=== PATIENT | female | born 1970 | race Caucasian/White ===

== ENCOUNTER 2017-11-24 12:53 | Emergency (ER) | payer MEDICARE, MEDICAID ==
[2017-11-24 13:42] LABS: ABS Basophils 0.1 10^3/ul (0-0.2); ABS Eosinophils 0.2 10^3/ul (0-0.6); ABS Lymphocytes 4.9 10^3/ul (1.0-4.8); ABS Monocytes 0.8 10^3/ul (0-0.8); ABS Neutrophils 5.6 10^3/ul (1.5-7.7); ABS Nucleated RBC 0 10^3/ul; Eosinophil % 1.7 % (0-6); Hematocrit 40 % (35-47); Hemoglobin 13.4 g/dl (12.0-16.0); Lymphocyte % 42.2 % (25-47); Mean Corpuscular HGB Conc 34 g/dl (31-36); Mean Corpuscular Hemoglobin 30 pg (27-31); Mean Corpuscular Volume 89 fL (80-97); Mean Platelet Volume 8 um3 (7.4-10.4); Nucleated Red Blood Cells % 0.1; Platelet Count 292 10^3/ul (150-450); Red Cell Distribution Width 13 % (10.5-15); White Blood Count 11.6 10^3/ul (3.5-10.8)
[2017-11-24 13:48] LABS: INR 0.98 (0.77-1.02)
[2017-11-24 13:58] LABS: EGFR Non-African American 122.6 (>60)
--- NOTE | 2017-11-24 15:30 | RAD ---
Indication: Left lower quadrant pain. CT of the abdomen and pelvis was performed without oral or IV contrast administration. Coronal and sagittal reconstructed images were obtained. Lung bases demonstrate no pleural fluid, nodules or masses. Heart is of normal size without pericardial effusion. Liver is normal in size. No focal lesions or intrahepatic ductal dilatation is noted. The gallbladder demonstrates no calcified gallstones. No pericholecystic fluid or wall thickening is identified. The common duct is not dilated. The spleen is normal in size. Pancreas demonstrates no mass or pancreatic ductal dilatation. No adrenal lesions are noted. The kidneys demonstrates no hydronephrosis. No retroperitoneal lymphadenopathy is noted. Aorta and inferior vena cava are unremarkable. CT of the pelvis demonstrates no retroperitoneal or pelvic lymphadenopathy. There is infiltration of fat in the anterior mesenteric border of the descending colon just above the junction between the descending colon and sigmoid colon. No fluid is noted. No wall thickening is noted. This is consistent with epiploic appendagitis. No free fluid is identified. The urinary bladder and ovaries are unremarkable. Dilated loops of bowel are noted. The appendix is visualized and is unremarkable. No hernias are noted. The bony structures including the lumbar spine are unremarkable. IMPRESSION: There is some infiltration of fat on the antimesenteric border of the descending colon without evidence of diverticula or focal wall thickening. Findings are consistent with epiploic appendagitis.
[2017-11-24 16:43] VITALS: BP 133/84
--- NOTE | 2017-11-25 10:31 | ED ---
Maricarmen Christianson Thomas, scribed for Manoj Joyce MD on 11/24/17 at 1358 . Abdominal Pain/Female - HPI Summary HPI Summary: The patient is a 47 year old female complaining of LLQ pain that began three days ago. The pain is rated 5/10. The pain is aggravated by palpation and movement. The patient has chronic constipation. The patient has been taking her stool softeners, and she digitally removed some stool two days ago. She denies nausea. She has a history of IBS. She is on morphine. - History of Current Complaint Chief Complaint: EDAbdPain Stated Complaint: POSSIBLE HERNIA Time Seen by Provider: 11/24/17 13:52 Hx Obtained From: Patient Onset/Duration: Lasting Days - 3, Still Present Severity Currently: Moderate Pain Intensity: 5 Pain Scale Used: 0-10 Numeric Location: Discrete At: LLQ Alleviating Factor(s): Nothing Associated Signs and Symptoms: Positive: Constipation. 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 abdominoplasty 1999, plantar fasciotomy 2003,left knee arthroscopy 2008, right frontal crani 2005 for meningioma, right frontal cranial resection 2006, oopherectomy 2011 Infectious Disease History: No Infectious Disease History: Denies: Traveled Outside the [place] in Last 30 Days - Family History Known Family History: Positive: Unknown - Patient was adopted - Social History Alcohol Use: Occasionally Hx Substance Use: No Substance Use Type: Reports: None Hx Tobacco Use: Yes Smoking Status (MU): Current Every Day Smoker Type: Cigarettes Amount Used/How Often: 15 cigarettes/day Length of Time of Smoking/Using Tobacco: had quit for 8 years and restarted again 1.5 yrs ago Have You Smoked in the Last Year: Yes Review of Systems Negative: Fever Positive: Abdominal Pain - LLQ, Other - Constipation. Negative: Nausea All Other Systems Reviewed And Are Negative: Yes Physical Exam - Summary Physical Exam Summary: Appearance: The patient is well-nourished in no acute distress and in no acute pain. Skin: The skin is warm and dry and skin color reflects adequate perfusion. HEENT: The head is normocephalic and atraumatic. The pupils are equal and reactive. The conjunctivae are clear and without drainage. Nares are patent and without drainage. Mouth reveals moist mucous membranes and the throat is without erythema and exudate. The external ears are intact. The ear canals are patent and without drainage. The tympanic membranes are intact. Neck: the neck is supple with full range of motion and non-tender. There are no carotid bruits. There is no neck vein distension. Respiratory: Chest is non-tender. Lungs are clear to auscultation and breath sounds are symmetrical and equal. Cardiovascular: Heart is regular rate and rhythm. There is no murmur or rub auscultated.~There is no peripheral edema and pulses are symmetrical and equal. Abdomen: The abdomen is soft. There is mild LLQ tenderness. There are normal bowel sounds heard in all four quadrants and there is no organomegaly palpated. Musculoskeletal: There is no back tenderness noted. Extremities are non-tender with full range of motion. There is good capillary refill. There is no peripheral edema or calf tenderness elicited. Neurological: Patient is alert and oriented to person, place and time. The patient has symmetrical motor strength in all four extremities. Cranial nerves are grossly intact. Deep tendon reflexes are symmetrical and equal in all four extremities. Psychiatric: The patient has an appropriate affect and does not exhibit any anxiety or depression. Triage Information Reviewed: Yes Vital Signs On Initial Exam: Initial Vitals Temp Pulse Resp BP Pulse Ox 97.4 F 86 14 143/84 98 11/24/17 12:55 11/24/17 12:55 11/24/17 12:55 11/24/17 12:55 11/24/17 12:55 Vital Signs Reviewed: Yes Diagnostics - Vital Signs Vital Signs Temp Pulse Resp BP Pulse Ox 11/24/17 12:55 97.4 F 86 14 143/84 98 - Laboratory Lab Results: Lab Results 11/24/17 11/24/17 11/24/17 Range/Units 13:00 13:00 13:00 WBC 11.6 H (3.5-10.8) 10^3/ul RBC 4.50 (4.0-5.4) 10^6/ul Hgb 13.4 (12.0-16.0) g/dl Hct 40 (35-47) % MCV 89 (80-97) fL MCH 30 (27-31) pg MCHC 34 (31-36) g/dl RDW 13 (10.5-15) % Plt Count 292 (150-450) 10^3/ul MPV 8 (7.4-10.4) um3 Neut % (Auto) 48.1 (38-83) % Lymph % (Auto) 42.2 (25-47) % [place] % (Auto) 7.0 (0-7) % Eos % (Auto) 1.7 (0-6) % Baso % (Auto) 1.0 (0-2) % Absolute Neuts (auto) 5.6 (1.5-7.7) 10^3/ul Absolute Lymphs (auto) 4.9 H (1.0-4.8) 10^3/ul Absolute Monos (auto) 0.8 (0-0.8) 10^3/ul Absolute Eos (auto) 0.2 (0-0.6) 10^3/ul Absolute Basos (auto) 0.1 (0-0.2) 10^3/ul Absolute Nucleated RBC 0 10^3/ul Nucleated RBC % 0.1 INR (Anticoag Therapy) 0.98 (0.77-1.02) Lactic Acid 1.1 (0.5-2.0) mmol/L Result Diagrams: 11/24/17 13:00 11/24/17 13:00 Lab Statement: Any lab studies that have been ordered have been reviewed, and results considered in the medical decision making process. - CT CT Abd/Pel CT Interpretation: Positive (See Comments) - There is some infiltration of fat on the antimesenteric border of the descending colon without evidence of diverticula or focal wall thickening. Findings are consistent with epiploic appendagitis. Dr. Joyce has reviewed this report. CT Interpretation Completed By: Radiologist Abdominal Pain Fem Course/Dx - Course Course Of Treatment: Ms. Sanchez presented with a concern that she is constipated as she has LLQ pain that is exacerbatied by straining at stools for the last couple of days. She was tender in the LLQ and CT showed that she has epiploic apendagitis. She will be treated symptomatically. - Diagnoses Provider Diagnoses: Epiploic appendagitis Discharge - Discharge Plan Condition: Stable Disposition: HOME Patient Education Materials: Abdominal Pain (ED) Referrals: Rodolfo Foote MD [Primary Care Provider] - 3 Days Additional Instructions: Follow up with your primary care physician in three days. Return to the emergency department for any new or worsening symptoms. The documentation as recorded by the Maricarmen arcos Thomas accurately reflects the service I personally performed and the decisions made by , Manoj Joyce MD.
== END 2017-11-24 16:41 | disposition home or self-care (01) ==
LOC: ED 12:53
DX: K63.89 Other specified diseases of intestine (principal); F17.210 Nicotine dependence, cigarettes, uncomplicated; Z88.0 Allergy status to penicillin
CPT/HCPCS: 36415; 74176; 80053; 82150; 82550; 83605; 83690; 83735; 84484; 84702; 85025; 85610; 86140; 99282

== ENCOUNTER 2018-02-24 14:14 | Emergency (ER) | payer MEDICARE, MEDICAID ==
--- NOTE | 2018-02-24 16:08 | ED ---
Skin Complaint - HPI Summary HPI Summary: Complains of redness, swelling, pain to left lower abdomen 4 days. Denies purulent drainage. History of abscess same site. Denies fever, N/V. Medical history is DM, RA, HDL, hypothyroid. - History of Current Complaint Chief Complaint: EDRashSkinAbscess Time Seen by Provider: 02/24/18 15:25 Stated Complaint: ABSCESS Hx Obtained From: Patient Pain Intensity: 9 - Additional Pertinent History Primary Care Physician: [facility] - Allergy/Home Medications Allergies/Adverse Reactions: Allergies Allergy/AdvReac Type Severity Reaction Status Date / Time Penicillins Allergy Hives Verified 02/24/18 14:24 PMH/Surg Hx/FS Hx/Imm Hx Endocrine/Hematology History: Reports: Hx Diabetes - on metformin, Hx Thyroid Disease - hypothryoid Cardiovascular History: Reports: Hx Hypercholesterolemia, Hx Hypertension Respiratory History: Reports: Hx Sleep Apnea GI History: Reports: Hx Gastroesophageal Reflux Disease Musculoskeletal History: Reports: Hx Arthritis - rheumatoid arthritis dx in 2006 , Hx Fibromyalgia Sensory History: Reports: 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 abdominoplasty 1999, plantar fasciotomy 2003,left knee arthroscopy 2008, right frontal crani 2005 for meningioma, right frontal cranial resection 2006, oopherectomy 2011 Infectious Disease History: No Infectious Disease History: Denies: Traveled Outside the [place] in Last 30 Days - Family History Known Family History: Positive: Unknown - Patient was adopted - Social History Alcohol Use: None Hx Substance Use: No Substance Use Type: Reports: Prescribed Substance Use Comment - Amount & Last Used: embeda and opana Hx Tobacco Use: Yes Smoking Status (MU): Current Every Day Smoker Type: Cigarettes Amount Used/How Often: 15 cigarettes/day Length of Time of Smoking/Using Tobacco: had quit for 8 years and restarted again 1.5 yrs ago Have You Smoked in the Last Year: Yes Review of Systems Constitutional: Negative Eyes: Negative ENT: Negative Cardiovascular: Negative Respiratory: Negative Gastrointestinal: Negative Genitourinary: Negative Musculoskeletal: Negative Positive: Other Neurological: Negative Psychological: Normal All Other Systems Reviewed And Are Negative: Yes Physical Exam - Summary Physical Exam Summary: 4 cm x 3 cm abscess left lower abdomen. No evidence of purulent drainage. Mildly fluctuant. Positive erythema, swelling and warmth. Triage Information Reviewed: Yes Vital Signs On Initial Exam: Initial Vitals Temp Pulse Resp BP Pulse Ox 97.6 F 84 14 151/101 98 02/24/18 14:25 02/24/18 14:25 02/24/18 14:25 02/24/18 14:25 02/24/18 14:25 Vital Signs Reviewed: Yes Appearance: Positive: Well-Appearing Skin: Positive: Warm Head/Face: Positive: Normal Head/Face Inspection Eyes: Positive: Normal Neck: Positive: Supple Respiratory/Lung Sounds: Positive: Clear to Auscultation Cardiovascular: Positive: Normal Abdomen Description: Positive: Nontender Musculoskeletal: Positive: Normal Neurological: Positive: Normal Psychiatric: Positive: Normal AVPU Assessment: Alert - Olivier Coma Scale Best Eye Response: 4 - Spontaneous Best Motor Response: 6 - Obeys Commands Best Verbal Response: 5 - Oriented Coma Scale Total: 15 Diagnostics - Vital Signs Vital Signs Temp Pulse Resp BP Pulse Ox 02/24/18 14:25 97.6 F 84 14 151/101 98 - Laboratory Lab Statement: Any lab studies that have been ordered have been reviewed, and results considered in the medical decision making process. Course/Dx - Course Course Of Treatment: Complains of abscess to left lower abdomen 4 days. Denies purulent drainage. History of abscess in same spot before that self resolved. Med history includes DM. I&D, Rx for Bactrim. Follow-up with primary care - Differential Diagnoses - Skin Complaint Differential Diagnoses: Abscess - Diagnoses Provider Diagnoses: Abscess Discharge - Sign-Out/Discharge Documenting (check all that apply): Discharge/Admit/Transfer - Discharge Plan Condition: Stable Disposition: HOME Prescriptions: Sulfamethox/Trimethoprim DS* [Bactrim DS 800/160 TAB*] 1 tab PO BID 10 Days #20 tab Patient Education Materials: Abscess (ED), Abscess Follow-up (ED) Referrals: Rodolfo Foote MD [Primary Care Provider] - Additional Instructions: Use compresses and warm shower water to help drain. Continue to press on abscess to help drain. Take antibiotics as directed. Return to the ED for any new or worsening symptoms - Billing Disposition and Condition Condition: STABLE Disposition: HOME
[2018-02-24] MEDS ORDERED: Sulfamethox/Trimethoprim DS 800/160* TAB PO ONE (16:10)
[2018-02-24 17:01] VITALS: BP 154/104
--- NOTE | 2018-02-28 06:37 | PN ---
Progress Note - Progress Note Date of Service: 03/27/18 Note: Pt. was seen in ED 02/24/18 and had abdominal abscess I and D. She was placed on Bactrim. Wound culture today is growing staph. lugdenensis which is susceptible to bactrim. No change in treatment needed at this time.
--- NOTE | 2018-03-01 07:00 | ED ---
Progress - Progress Note Progress Note: Patient's wound result reveals Staphylococcus Lugdenensis. She was started on Bactrim and organism does not appear to be sensitive to this antibiotic. She is however sensitive to both clindamycin and doxycycline. Left message to call and Will mail letter. tom Tao, heriberto. Course/Dx - Course Course Of Treatment: Complains of abscess to left lower abdomen 4 days. Denies purulent drainage. History of abscess in same spot before that self resolved. Med history includes DM. I&D, Rx for Bactrim. Follow-up with primary care - Diagnoses Provider Diagnoses: Abscess Discharge - Sign-Out/Discharge Documenting (check all that apply): Post-Discharge Follow Up - Discharge Plan Condition: Stable Disposition: HOME Prescriptions: Sulfamethox/Trimethoprim DS* [Bactrim DS 800/160 TAB*] 1 tab PO BID 10 Days #20 tab Patient Education Materials: Abscess (ED), Abscess Follow-up (ED) Referrals: Rodolfo Foote MD [Primary Care Provider] - Additional Instructions: Use compresses and warm shower water to help drain. Continue to press on abscess to help drain. Take antibiotics as directed. Return to the ED for any new or worsening symptoms - Billing Disposition and Condition Condition: STABLE Disposition: HOME
== END 2018-02-24 16:55 | disposition home or self-care (01) ==
LOC: ED 14:14
DX: L02.211 Cutaneous abscess of abdominal wall (principal); B95.7 Other staphylococcus as the cause of diseases classified elsewhere; E11.9 Type 2 diabetes mellitus without complications; F17.210 Nicotine dependence, cigarettes, uncomplicated; Z79.84 Long term (current) use of oral hypoglycemic drugs; Z88.0 Allergy status to penicillin
CPT/HCPCS: 10060; 87070; 87077; 87186; 87205; 87640; 87641; 99282; A9270-GY

== ENCOUNTER → 2019-02-03 10:14 | Emergency (ER) | payer MEDICARE, MEDICAID ==
[~2019-02-03 10:14] MED LIST: Iodixanol* (CONTRAST) 320 MG/ML 100 ML SDV IV ONE; Morphine 4 MG/ML VIAL (1 ml) 4 MG/ML VIAL IV ONE; NS 0.9% 1000 ML** 1,000 ML IV ONE; Ondansetron INJ* 2 MG/ML VIAL IV ONE
--- NOTE | 2019-02-03 12:13 | ED ---
Abdominal Pain/Female - HPI Summary HPI Summary: Pt. is a 49 y.o female who presents to the ER for nausea and vomiting x 3 days. Associated sxs of epigastric pain. Pt. denies fever, chills, CP, SOB, diarrhea, urinary sxs. Pt. notes she has been very tired and slept almost 24 hours yesterday. notes she had a low grade fever around 100.3F yesterday. Past medical hx of RA, HDL, DM, depression, fibromyalgia, hypothyroidism. Pt. follows with the pain clinic and is on chronic narcotics. Sxs are moderate in severity. No current modifying factors. - History of Current Complaint Chief Complaint: EDNauseaVomitDiarrh Stated Complaint: THROWING UP PER PT Time Seen by Provider: 02/03/19 11:59 Hx Obtained From: Patient Pain Intensity: 10 Allergies/Adverse Reactions: Allergies Allergy/AdvReac Type Severity Reaction Status Date / Time Penicillins Allergy Hives Verified 02/03/19 10:32 PMH/Surg Hx/FS Hx/Imm Hx Previously Healthy: Yes Endocrine/Hematology History: Reports: Hx Diabetes - on metformin, Hx Thyroid Disease - hypothryoid Cardiovascular History: Reports: Hx Hypercholesterolemia, Hx Hypertension Respiratory History: Reports: Hx Sleep Apnea GI History: Reports: Hx Gastroesophageal Reflux Disease Musculoskeletal History: Reports: Hx Arthritis - rheumatoid arthritis dx in 2006 , Hx Fibromyalgia Sensory History: Reports: 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 abdominoplasty 1999, plantar fasciotomy 2003,left knee arthroscopy 2008, right frontal crani 2005 for meningioma, right frontal cranial resection 2006, oopherectomy 2011 Infectious Disease History: No Infectious Disease History: Denies: Traveled Outside the [place] in Last 30 Days - Family History Known Family History: Positive: Unknown - Patient was adopted - Social History Occupation: Unemployed Lives: With Family Alcohol Use: Occasionally Alcohol Amount: 3-5 drinks per year Hx Substance Use: No Substance Use Type: Reports: None Substance Use Comment - Amount & Last Used: embeda and opana Hx Tobacco Use: Yes Smoking Status (MU): Current Every Day Smoker Type: Cigarettes Amount Used/How Often: 15 cigarettes/day Length of Time of Smoking/Using Tobacco: had quit for 8 years and restarted again 1.5 yrs ago Have You Smoked in the Last Year: Yes Review of Systems Constitutional: Negative Eyes: Negative ENT: Negative Cardiovascular: Negative Negative: Palpitations, Chest Pain Respiratory: Negative Negative: Shortness Of Breath, Cough Positive: Abdominal Pain, Vomiting, Nausea. Negative: Diarrhea Genitourinary: Negative Neurological: Negative All Other Systems Reviewed And Are Negative: Yes Physical Exam Triage Information Reviewed: Yes Vital Signs On Initial Exam: Initial Vitals Temp Pulse Resp BP Pulse Ox 99.5 F 98 20 158/107 96 02/03/19 10:29 02/03/19 10:29 02/03/19 10:29 02/03/19 10:29 02/03/19 10:29 Vital Signs Reviewed: Yes Appearance: Positive: Pain Distress - Pt. sitting up in bed in NAD. Appears comfortable but nontoxic. present. Skin: Positive: Warm, Dry Head/Face: Positive: Normal Head/Face Inspection Eyes: Positive: Normal, EOMI, DEANNA Neck: Positive: Supple Respiratory/Lung Sounds: Positive: Clear to Auscultation, Breath Sounds Present Cardiovascular: Positive: Normal, RRR Abdomen Description: Positive: Other: - Obese. Abd is soft with diffuse upper abd. tenderness. No rebound tenderness or guarding. Neurological: Positive: Normal, CN Intact II-III Psychiatric: Positive: Affect/Mood Appropriate Diagnostics - Vital Signs Vital Signs Temp Pulse Resp BP Pulse Ox 02/03/19 11:49 99.0 F 92 18 156/104 94 02/03/19 10:29 99.5 F 98 20 158/107 96 - Laboratory Result Diagrams: 02/03/19 12:14 02/03/19 12:14 Lab Statement: Any lab studies that have been ordered have been reviewed, and results considered in the medical decision making process. Abdominal Pain Fem Course/Dx - Course Course Of Treatment: Pt. presenting for fatigue, N/V and low grade fever. Upper abd. pain on exam. Afebrile with stable VS. Pt. started on IV fluids, zofran and pain medication. ECG done at 1215 shows a sinus rhythm of 88bpm, normal axis , no ST elevation or depression. Labs are unremarkable other than mild elevation in glucose and CRP. CT abd. and pelvis is negative for a cute findings per radiology. On re-exam pt. is resting comfortably. She has had no further vomiting and is tolerating POs. Suspect viral etiology. Zofran rx. Increase fluids. Close f.u with PCP and return to ER if sxs change or worsen. - Diagnoses Differential Diagnosis: Positive: Abdominal Aortic Aneurysm, ACS, Appendicitis, Constipation, Diverticulitis, Gall Bladder Disease, OR, Pancreatitis, Peptic Ulcer Disease, Renal Colic, Urinary Tract Infection Provider Diagnoses: Nausea & vomiting, Gastroenteritis Discharge - Sign-Out/Discharge Documenting (check all that apply): Patient Departure Patient Received Moderate/Deep Sedation with Procedure: No - Discharge Plan Condition: Improved Disposition: HOME Prescriptions: Ondansetron TAB* [Zofran 4 MG Tab*] 4 mg PO Q6H PRN #12 tab PRN Reason: Nausea Ondansetron TAB* [Zofran 4 MG Tab*] 4 mg PO Q6H PRN #12 tab PRN Reason: Nausea Patient Education Materials: Gastroenteritis (ED), Acute Nausea and Vomiting ( ED) Referrals: Rodolfo Foote MD [Primary Care Provider] - Additional Instructions: Schedule a close follow up appointment with PCP Zofran as needed for nausea Increase fluids Return to ER if symptoms change or worsen - Billing Disposition and Condition Condition: IMPROVED Disposition: Home
[2019-02-03 12:24] LABS: ABS Basophils 0.1 10^3/ul (0-0.2); ABS Lymphocytes 1.6 10^3/ul (1.0-4.8); ABS Monocytes 0.8 10^3/ul (0-0.8); ABS Neutrophils 7.2 10^3/ul (1.5-7.7); Eosinophil % 0.3 %; Hematocrit 46 % (35-47); Lymphocyte % 16.2 %; Mean Corpuscular HGB Conc 35 g/dL (31-36); Mean Corpuscular Hemoglobin 31 pg (27-31); Mean Corpuscular Volume 91 fL (80-97); Mean Platelet Volume 7.5 fL (7.4-10.4); Platelet Count 278 10^3/uL (150-450); Red Blood Count 5.08 10^6 /uL (3.70-4.87); Red Cell Distribution Width 14 % (10.5-15); White Blood Count 9.6 10^3/uL (3.5-10.8)
[2019-02-03 12:40] LABS: Troponin I 0.01 ng/mL (<0.04)
[2019-02-03 12:43] LABS: Albumin 4.6 g/dL (3.2-5.2); Albumin/Globulin Ratio 1.5 (1-3); BUN/Creatinine Ratio 20.9 (8-20); C Reactive Protein 19.39 mg/L (<8.01); Calcium 9.8 mg/dL (8.6-10.3); EGFR African American 187.3 (>60); EGFR Non-African American 154.8 (>60); Potassium 3.9 mmol/L (3.5-5.0); Total Bilirubin 0.9 mg/dL (0.2-1.0); Total Protein 7.6 g/dL (6.4-8.9)
[2019-02-03 15:37] VITALS: BP 164/98
== END | disposition home or self-care (01) ==
LOC: ED 10:14
DX: K52.9 Noninfective gastroenteritis and colitis, unspecified (principal); F41.9 Anxiety disorder, unspecified; F32.9 Major depressive disorder, single episode, unspecified; F17.210 Nicotine dependence, cigarettes, uncomplicated; E11.9 Type 2 diabetes mellitus without complications; E03.9 Hypothyroidism, unspecified; M06.9 Rheumatoid arthritis, unspecified; Z79.84 Long term (current) use of oral hypoglycemic drugs; Z79.891 Long term (current) use of opiate analgesic; Z88.0 Allergy status to penicillin
CPT/HCPCS: 36415; 74177; 80053; 83690; 84484; 85025; 86140; 93005; 99283; J2270; J2405; Q9967